=== PATIENT | male | born 1975 | race Hispanic/Latino ===

== ENCOUNTER 2017-03-26 19:15 | Inpatient (IN) | payer SELFPAY ==
[2017-03-26 20:09] LABS: #Basophils 0.1 thou/uL (0.0-0.2); #Eosinphils 0.3 thou/uL (0.0-0.7); #Lymphocytes 3.5 thou/uL (1.20-3.40); #Monocytes 0.8 thou/uL (0.11-0.59); #Neutrophils 6.7 thou/uL (1.40-6.50); %Basophils 0.5 % (0.0-1.0); %Eosinophils 2.2 % (0.0-10.0); %Monocytes 7.5 % (0.0-10.0); Mean Platelet Volume 9.9 fL (7.4-10.4); Red Blood Cell (RBC) Count 4.74 mill/uL (4.70-6.10); White Blood Cell (WBC) Count 11.3 thou/uL (4.8-10.8)
[2017-03-26 20:29] LABS: ALT (SGPT) 58 U/L (8-55); AST (SGOT) 32 U/L (5-34); Alkaline Phosphatase 118 U/L (40-150); Anion Gap 14 mmol/L (10-20); BUN (Urea Nitrogen) 12 mg/dL (8.9-20.6); Bilirubin, Total 0.6 mg/dL (0.2-1.2); Calc. Creatinine Clearance 0 mL/min (70-130); Calcium 9.5 mg/dL (7.8-10.44); Carbon Dioxide 26 mmol/L (22-29); Chloride 95 mmol/L (98-107); Estimated GFR-MDRD 80; Globulin 3.8 g/dL (2.4-3.5); Protein, Total 7.9 g/dL (6.0-8.3)
[2017-03-26 20:43] LABS: Lactic Acid - Sepsis 2.2 mmol/L (0.5-2.2)
[2017-03-26] MEDS ORDERED: Ondansetron HCl/PF 4 MG/2 ML Vial ONE (20:46)
[2017-03-26] MEDS ORDERED: Morphine 2 MG/ML SYRINGE ONE (20:46)
--- NOTE | 2017-03-26 21:12 | RAD ---
RIGHT KNEE FOUR VIEWS: History: Knee pain. FINDINGS: There is no sign of fracture, dislocation, or joint effusion. IMPRESSION: Negative right knee. POS: TEENA
[2017-03-26 21:25] LABS: Anion Gap 10 mmol/L (-14-95); T. Carbon Dioxide 25.7 mmol/L (1.0-85.0); pH (Venous) 7.427 (7.35-7.45); vO2 Saturation-calc 97.8 % (0.0-100.0)
[2017-03-26] MEDS ORDERED: Insulin Regular 300 UNITS/3 ML VIAL ONE (21:36)
[2017-03-26] MEDS ORDERED: cefTRIAXone\\ROCEPHIN 2 GM VIAL ONE (22:03)
[2017-03-26 23:14] VITALS: BMI 37.0
[2017-03-26] MEDS ORDERED: Ondansetron HCl/PF 4 MG/2 ML Vial IVP PRN ×2 (23:15→23:33)
[2017-03-26] MEDS ORDERED: Acetaminophen 325 MG TAB PO PRN (23:15)
[2017-03-26] MEDS ORDERED: Ondansetron ODT 4 MG TAB SL PRN (23:15)
[2017-03-26] MEDS ORDERED: Sodium Chloride 0.9% 1,000 ML IV SCH (23:16)
[2017-03-26] MEDS ORDERED: hydrALAZINE 20 MG/ML VIAL SLOW IVP PRN (23:33)
[2017-03-26] MEDS ORDERED: Ondansetron ODT 4 MG TAB PO PRN (23:33)
[2017-03-26] MEDS ORDERED: cloNIDine 0.1 MG TAB PO PRN (23:33)
[2017-03-26] MEDS ORDERED: HumaLOG 300 UNITS/3 ML VIAL SC PRN (23:33)
[2017-03-26] MEDS ORDERED: Dextrose 5% in Water 1,000 ML IV PRN (23:33)
[2017-03-26] MEDS ORDERED: Acetaminophen 500 MG TAB PO PRN (23:33)
[2017-03-26] MEDS ORDERED: Dextrose 50% Abboject 50 ML SYRINGE SLOW IVP PRN (23:33)
[2017-03-26] MEDS: Ketorolac Tromethamine 30 MG/ML VIAL IVP SCH (23:58)
[2017-03-26] MEDS: Sodium Chloride 0.9% 1,000 ML IV SCH (23:58)
--- NOTE | 2017-03-27 00:09 | HP ---
DATE OF ADMISSION: 03/26/2017 PRIMARY CARE PHYSICIAN: Polo farmer. CHIEF COMPLAINT: Right knee pain. HISTORY OF PRESENT ILLNESS: This is a 41-year-old male who presents to [facility] complaining of 4 to 5-day history of increasing right knee pain, swelling, redness wi th difficulty moving the knee. The patient states he was changing a tire approximately 4 to 5 days prior to this evaluation, kneeling on his right knee when a thorn punctured over his right kneecap. The patient states he had increasing swelling, pain, and redness moving up his right inner thigh in the last 24 to 48 hours. The patient states he clean the area with soap and water; however, did no t notice any foreign body or drainage from the knee. The patient denies any prior similar incidents in the past. The patient did not take any other specific medications and denied documented or subj ective fever. 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 In the emergency room, the patient underwent general evaluation with incr eased redness of the right knee noted undergoing plain radiographic evaluation showing no evidence o f foreign body. Screening metabolic survey was also performed showing evidence of undiagnosed diabe omayra mellitus with a glucose of 614. The patient received intravenous fluids as well as 10 units of Novolin R and Zofran. The patient also received IV vancomycin and Rocephin after suspicion for loca l cellulitis versus septic bursitis. The patient was transferred to the Hospitalist Service for elizabeth luation and admission. PAST MEDICAL HISTORY: Diabetes mellitus type 2, untreated. PAST SURGICAL HISTORY: Reviewed and negative. CURRENT MEDICATIONS: Reviewed and negative. ALLERGIES: No known drug allergies. FAMILY HISTORY: The patient admits to one uncle with diabetes mellitus. SOCIAL HISTORY: The patient has resides in the [facility] area. Works as a tractor [employer]. Positive alcohol use. No tobacco or illicit drug use. REVIEW OF SYSTEMS: The following complete review of systems was negative, unless otherwise mentione d in the HPI or below: Constitutional: Weight loss or gain, ability to conduct usual activities. Skin: Rash, itching. Eyes: Double vision, pain. ENT/Mouth: Nose bleeding, neck stiffness, pain, tenderness. Cardiovascular: Palpitations, dyspnea on exertion, orthopnea. Respiratory: Shortness of breath, wheezing, cough, hemoptysis, fever or night sweats. Gastrointestinal: Poor appetite, abdominal pain, heartburn, nausea, vomiting, constipation, or diar darrell. Genitourinary: Urgency, frequency, dysuria, nocturia. Musculoskeletal: Pain, swelling. Neurologic/Psychiatric: Anxiety, depression. Allergy/Immunologic: Skin rash, bleeding tendency. Otherwise, negative except as stated per HPI. PHYSICAL EXAMINATION: VITAL SIGNS: On admission, blood pressure 155/95, pulse 94, respiratory rate 18, temperature 98.3 d egrees Fahrenheit, O2 saturation 98% on room air. GENERAL APPEARANCE: This is a 41-year-old male, alert and oriented x3, pleasant, in no acu te distress. HEENT: Pupils are equal, round, and reactive to light and accommodation. Extraocular muscles are i ntact. No scleral icterus, no conjunctival injection. Nares patent. OP is clear. Teeth in fair r epair. NECK: Supple, no cervical adenopathy, no thyromegaly, no carotid bruits, no JVD appreciated. Cervi miguelito spine with full active and passive range of motion. CHEST: Lungs are clear to auscultation bilaterally. CARDIOVASCULAR: S1, S2, without noted murmur. ABDOMEN: Obese, soft, nontender, nondistended. Bowel sounds are positive in all four quadrants. T here is no hepatosplenomegaly, no abdominal bruits, no rebound or guarding appreciated. EXTREMITIES: Warm and dry with fair turgor. Positive edema and erythema over the right patella wit h partial fluctuance to palpation. No expressible discharge noted. Limited active range of motion and terminal degrees of flexion. No popliteal space edema or tenderness to palpation. Pulses are p alpable distally at the dorsalis pedis, posterior tibial, and popliteal arteries bilaterally. Capil morales refill less than 2 seconds. NEUROLOGIC: Cranial nerves II-XII are grossly intact. No focal or lateralizing signs appreciated. PERTINENT LABORATORY DATA AND X-RAY FINDINGS: Sodium 131, potassium 4.2, chloride 95, CO2 of 26, BU N 12, creatinine 1.03 with estimated GFR of 80, glucose 614, lactic acid level 2.2, serum osmolality 302, calcium 9.5, total bilirubin 0.6, AST 32, ALT of 58, alkaline phosphatase 118. CRP 5.61. Tot al CK of 79, albumin 4.1. CBC showed a white blood cell count of 11.3, hemoglobin 15.8, hematocrit 47, MCV 99.1, platelet count 205 with normal differential. ESR 14. Beta hydroxybutyrate level 0.40 . Four views of the right knee dated 03/26/2017 showed no evidence of acute process. ASSESSMENT AND PLAN: 1. Right knee cellulitis/questionable septic bursitis. The patient will be admitted to the medical floor. We will continue Rocephin 2 grams IV q.24 hours with additional vancomycin 1 gram IV q.12 h ours. We will consult Orthopedic Surgery Service for evaluation and consideration for incision and d rainage. Repeat CBC in the a.m. Continue pain control with Toradol 30 mg IV q.6 hours. 2. New onset diabetes mellitus type 2, uncontrolled. We will initiate insulin sliding scale with H umalog. Initiate metformin 850 mg p.o. b.i.d. Check A1c level in the a.m. ADA diet. Serial Accu- Cheks before meals and at bedtime. 3. Hyponatremia secondary to hyperglycemia. We will continue normal saline at 125 mL per hour and repeat sodium level in the a.m. 4. Elevated blood pressure. No specific diagnosis of prior hypertension. We will continue serial blood pressure monitoring and treat as clinically indicated. 5. Leukocytosis secondary to #1. Repeat CBC in the a.m. 6. Prophylaxis. Update tetanus prior to discharge. Pepcid 20 mg p.o. b.i.d. Sequential compressi on devices while in bed. 7. Code status is FULL. Surrogate medical decision maker is patient's son.
[2017-03-27] MEDS: HumaLOG 300 UNITS/3 ML VIAL SC PRN ×3 (05:16→17:56)
[2017-03-27] MEDS: Ketorolac Tromethamine 30 MG/ML VIAL IVP SCH ×4 (05:17→23:46)
[2017-03-27 05:27] LABS: Hemoglobin A1c 11.9 % (4.0-6.0)
[2017-03-27 05:39] LABS: Anion Gap 8 mmol/L (10-20); BUN (Urea Nitrogen) 9 mg/dL (8.9-20.6); Calc. Creatinine Clearance 185 mL/min (70-130); Calcium 8.4 mg/dL (7.8-10.44); Carbon Dioxide 27 mmol/L (22-29); Chloride 105 mmol/L (98-107); Estimated GFR-MDRD Greater than 90
[2017-03-27 06:00] LABS: Band 3 % (5-11); Hematocrit 40.8 % (42.0-52.0); Neutrophil 44 % (42-75); White Blood Cell (WBC) Count 7.2 thou/uL (4.8-10.8)
[2017-03-27] MEDS: metFORMIN 850 MG TAB PO SCH ×2 (08:07→17:56)
[2017-03-27] MEDS: Famotidine 20 MG TAB PO SCH ×2 (08:07→21:36)
[2017-03-27] MEDS: Sodium Chloride 0.9% 1,000 ML IV SCH (08:10)
[2017-03-27] MEDS ORDERED: FLU VACC QS2017-18 36 mo. & older 0.5 ML SYRINGE IM ONE (09:00)
[2017-03-27] MEDS ORDERED: Vancomycin HCl 1 GM in Premix Bag 1 BAG IVPB SCH (09:00)
[2017-03-27] MEDS: Vancomycin HCl 1.5 GM in Sodium Chloride 0.9% 250 ML 250 ML IVPB SCH ×2 (10:07→21:45)
--- NOTE | 2017-03-27 13:44 | PDOC.PN ---
- Subjective Encounter Start Date: 03/27/17 Encounter Start Time: 12:00 Subjective: right knee is feeling better - Objective Resuscitation Status: Resuscitation Status FULL:Full Resuscitation MAR Reviewed: Yes Vital Signs & Weight: Vital Signs (12 hours) Temp Pulse Resp BP BP Pulse Ox 03/27/17 12:00 97.6 F 75 18 123/77 95 03/27/17 08:00 97.9 F 74 18 111/73 98 03/27/17 04:00 97.9 F 77 16 119/80 98 Weight Weight 223 lb I&O: 03/26/17 03/27/17 03/28/17 06:59 06:59 06:59 Intake Total 1275 240 Balance 1275 240 Result Diagrams: 03/27/17 05:09 03/27/17 05:09 Additional Labs: Accuchecks 03/27/17 03/27/17 03/26/17 11:57 04:57 23:17 POC Glucose 214 H 284 H 277 H Phys Exam - Physical Examination HEENT: PERRLA, moist MMs Neck: no JVD, supple Respiratory: no wheezing, no rales Cardiovascular: RRR, no significant murmur Gastrointestinal: soft, no distention, positive bowel sounds Musculoskeletal: pulses present right knee has edema, erythema and crepitus Neurological: non-focal, moves all 4 limbs Psychiatric: A&O x 3 Dx/Plan (1) Cellulitis of right knee Code(s): L03.115 - CELLULITIS OF RIGHT LOWER LIMB Status: Acute (2) DM type 2 (diabetes mellitus, type 2) Status: Acute Qualifiers: Diabetes mellitus complication status: with hyperglycemia Diabetes mellitus custodial insulin use: without terminal block assembler use Qualified Code(s): E11.65 - Type 2 diabetes mellitus with hyperglycemia Comment: new onset (3) Obesity (BMI 30-39.9) Code(s): E66.9 - OBESITY, UNSPECIFIED Status: Chronic - Plan is on vanc and ceftriaxone -: diabetic education, new onset dm -: is on metformin 850mg bid with coverage -: will revisit patient in am to see response for antibiotics * . Review of Systems - Medications/Allergies Allergies/Adverse Reactions: Allergies Allergy/AdvReac Type Severity Reaction Status Date / Time No Known Drug Allergies Allergy Verified 03/27/17 00:39 Medications: Current Medications Acetaminophen (Tylenol) 1,000 mg PO Q6H PRN PRN Reason: Headache/Fever or Mild Pain Hydrocodone Bitart/Acetaminophen ([place] 5/325) 1 tab PO Q4H PRN PRN Reason: Moderate Pain (4-6) Clonidine HCl (Catapres) 0.1 mg PO Q4H PRN PRN Reason: Systolic BP > 180 Dextrose/Water (Dextrose 50%) 25 gm SLOW IVP PRN PRN PRN Reason: Hypoglycemia Famotidine (Pepcid) 20 mg PO BID [facility] Last Admin: 03/27/17 08:07 Dose: 20 mg Glucagon (Glucagon) 1 mg IM PRN PRN PRN Reason: Hypoglycemia Hydralazine HCl (Apresoline) 10 mg SLOW IVP Q4H PRN PRN Reason: Systolic BP > 180 Dextrose/Water (D5w) 1,000 mls @ 0 mls/hr IV .Q0M PRN; As Directed PRN Reason: Hypoglycemia Sodium Chloride (Normal Saline 0.9%) 1,000 mls @ 125 mls/hr IV .Q8H [facility] Last Admin: 03/27/17 08:10 Dose: 1,000 mls Vancomycin HCl 1.5 gm/ Sodium (Chloride) 250 mls @ 166.67 mls/hr IVPB 1000, 2200 [facility] Last Admin: 03/27/17 10:07 Dose: 250 mls Ceftriaxone Sodium 2 gm/Miscellaneous Medication 1 each/ Sodium Chloride 100 mls @ 200 mls/hr IVPB Q24HR [facility] Insulin Human Lispro (Humalog) 0 units SC .MODERATE SLIDING SC PRN PRN Reason: Moderate Correctional Scale Last Admin: 03/27/17 12:04 Dose: 4 unit Insulin Human Lispro (Humalog) 0 units SC .BEDTIME SLIDING SC PRN PRN Reason: Bedtime Correctional Scale Ketorolac Tromethamine (Toradol) 30 mg IVP Q6HR [facility] Stop: 03/31/17 23:59 Last Admin: 03/27/17 12:03 Dose: 30 mg Metformin HCl (Glucophage) 850 mg PO BID-[facility] Last Admin: 03/27/17 08:07 Dose: 850 mg Ondansetron HCl (Zofran Odt) 4 mg PO Q6H PRN PRN Reason: Nausea/Vomiting Ondansetron HCl (Zofran) 4 mg IVP Q6H PRN PRN Reason: Nausea/Vomiting
--- NOTE | 2017-03-27 18:48 | CON ---
DATE OF CONSULTATION: 03/27/2017 ORTHOPEDIC CONSULTATION REQUESTING PHYSICIAN: Alondra Boothe M.D. CONSULTING PHYSICIAN: Masoud Lo M.D. REASON FOR CONSULTATION: Right knee pain, swelling, and redness consistent with suprapatellar bursi tis and septic bursitis. BRIEF CLINICAL HISTORY: Josr is a 41-year-old male who was admitted to the emergency ro om by the medicine team after he presented with increasing pain in the right knee for 4 to 5 days. He had no evaluation and no treatment, but apparently a thorn punctured his skin over his right knee cap. Pain has been getting worse, but he has had no drainage and the erythema has been becoming mor e noticeable. Apparently, he presented with glucose of 614. He has been started on IV vancomycin a nd Rocephin. Our service was consulted for evaluation for septic bursitis and surgical candidacy fo r possible drainage. PAST MEDICAL HISTORY: New diagnosis, diabetes type 2, untreated. PAST SURGICAL HISTORY: Negative. MEDICATIONS: None. ALLERGIES: No known drug allergies. Denies any contact allergies. 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 Consumes ethanol socially. No to bacco or illicit drug abuse. PHYSICAL EXAMINATION: Visual inspection of the right lower extremity demonstrates him to have swell ing in the supralateral aspect of the right knee. Patellar ballottement is negative. There is no f luctuance, but it is quite indurated, tender, warm, and erythematous, but the joint does not appear to be involved. He has active range of motion of the knee and passive is non-provocative. No evide nce of trauma was noted, but he does have some induration of about 3 to 4 cm in length in the transv erse plane. No fluctuance is noted. No purulence is expressed. Erythema surrounds this and is ten kain and warm and local and blanches with pressure. IMPRESSION: Right knee extracapsular suprapatellar cellulitis. PLAN: We will observe for the next 24 hours. We will let him receive IV antibiotics to see if the swelling and induration goes down, but currently I cannot detect a fluctuant abscess appropriate for drainage. The knee capsule does not appear to be involved, but certainly proceed with IV antibioti c treatment. Reevaluate tomorrow morning and I will keep him n.p.o. just in case.
[2017-03-27] MEDS: cefTRIAXone\\ROCEPHIN 2 GM, Admixture Fee 1 EACH in Sodium Chloride 0.9% 100 ML IVPB SCH (21:37)
[2017-03-28] MEDS: Ketorolac Tromethamine 30 MG/ML VIAL IVP SCH ×3 (05:15→17:52)
[2017-03-28] MEDS: HYDROcodone/Acetaminophen 5/325 mg Tablet PO PRN ×2 (09:07→16:44)
[2017-03-28] MEDS: Famotidine 20 MG TAB PO SCH ×2 (09:08→21:04)
[2017-03-28] MEDS: metFORMIN 850 MG TAB PO SCH ×2 (09:08→17:01)
[2017-03-28] MEDS: Vancomycin HCl 1.5 GM in Sodium Chloride 0.9% 250 ML 250 ML IVPB SCH ×2 (09:08→21:41)
--- NOTE | 2017-03-28 11:01 | PDOC.PN ---
- Subjective Encounter Start Date: 03/28/17 Encounter Start Time: 11:00 Subjective: feels better, right knee pain and swelling is better - Objective Resuscitation Status: Resuscitation Status FULL:Full Resuscitation MAR Reviewed: Yes Vital Signs & Weight: Vital Signs (12 hours) Temp Pulse Resp BP Pulse Ox 03/28/17 07:54 98.1 F 72 16 129/86 97 Weight Weight 223 lb I&O: 03/27/17 03/28/17 03/29/17 06:59 06:59 06:59 Intake Total 1275 480 Balance 1275 480 Result Diagrams: 03/27/17 05:09 03/27/17 05:09 Additional Labs: Accuchecks 03/28/17 03/27/17 03/27/17 04:13 20:23 16:12 POC Glucose 246 H 267 H 280 H 03/27/17 11:57 POC Glucose 214 H Phys Exam - Physical Examination HEENT: PERRLA, moist MMs Neck: no JVD, supple Respiratory: no wheezing, no rales Cardiovascular: RRR, no significant murmur Gastrointestinal: soft, non-tender, positive bowel sounds Musculoskeletal: pulses present right knee erythema and induration is better Neurological: non-focal, moves all 4 limbs Psychiatric: A&O x 3 Dx/Plan (1) Cellulitis of right knee Code(s): L03.115 - CELLULITIS OF RIGHT LOWER LIMB Status: Acute (2) DM type 2 (diabetes mellitus, type 2) Status: Acute Qualifiers: Diabetes mellitus complication status: with hyperglycemia Diabetes mellitus terminal manager insulin use: without long-term use Qualified Code(s): E11.65 - Type 2 diabetes mellitus with hyperglycemia Comment: new onset (3) Obesity (BMI 30-39.9) Code(s): E66.9 - OBESITY, UNSPECIFIED Status: Chronic - Plan is on vanc and ceftriaxone -: add glipizide -: will switch metformin to tid 500mg in am -: ortho team is following * . Review of Systems - Medications/Allergies Allergies/Adverse Reactions: Allergies Allergy/AdvReac Type Severity Reaction Status Date / Time No Known Drug Allergies Allergy Verified 03/27/17 00:39 Medications: Current Medications Acetaminophen (Tylenol) 1,000 mg PO Q6H PRN PRN Reason: Headache/Fever or Mild Pain Hydrocodone Bitart/Acetaminophen ([place] 5/325) 1 tab PO Q4H PRN PRN Reason: Moderate Pain (4-6) Last Admin: 03/28/17 09:07 Dose: 1 tab Clonidine HCl (Catapres) 0.1 mg PO Q4H PRN PRN Reason: Systolic BP > 180 Dextrose/Water (Dextrose 50%) 25 gm SLOW IVP PRN PRN PRN Reason: Hypoglycemia Famotidine (Pepcid) 20 mg PO BID [facility] Last Admin: 03/28/17 09:08 Dose: 20 mg Glipizide (Glucotrol) 5 mg PO [facility] Stop: 03/28/17 10:59 Glipizide (Glucotrol) 5 mg PO DAILY-[facility] Glucagon (Glucagon) 1 mg IM PRN PRN PRN Reason: Hypoglycemia Hydralazine HCl (Apresoline) 10 mg SLOW IVP Q4H PRN PRN Reason: Systolic BP > 180 Dextrose/Water (D5w) 1,000 mls @ 0 mls/hr IV .Q0M PRN; As Directed PRN Reason: Hypoglycemia Vancomycin HCl 1.5 gm/ Sodium (Chloride) 250 mls @ 166.67 mls/hr IVPB 1000, 2200 [facility] Last Admin: 03/28/17 09:08 Dose: 250 mls Ceftriaxone Sodium 2 gm/Miscellaneous Medication 1 each/ Sodium Chloride 100 mls @ 200 mls/hr IVPB Q24HR [facility] Last Admin: 03/27/17 21:37 Dose: 100 mls Insulin Human Lispro (Humalog) 0 units SC .MODERATE SLIDING SC PRN PRN Reason: Moderate Correctional Scale Last Admin: 03/27/17 17:56 Dose: 6 unit Insulin Human Lispro (Humalog) 0 units SC .BEDTIME SLIDING SC PRN PRN Reason: Bedtime Correctional Scale Last Admin: 03/27/17 21:36 Dose: 3 unit Ketorolac Tromethamine (Toradol) 30 mg IVP Q6HR [facility] Stop: 03/31/17 23:59 Last Admin: 03/28/17 05:15 Dose: 30 mg Metformin HCl (Glucophage) 850 mg PO BID-[facility] Last Admin: 03/28/17 09:08 Dose: 850 mg Ondansetron HCl (Zofran Odt) 4 mg PO Q6H PRN PRN Reason: Nausea/Vomiting Ondansetron HCl (Zofran) 4 mg IVP Q6H PRN PRN Reason: Nausea/Vomiting
[2017-03-28] MEDS ORDERED: glipiZIDE 5 MG TAB PO SCH (11:15)
[2017-03-28] MEDS: HumaLOG 300 UNITS/3 ML VIAL SC PRN ×2 (12:19→17:05)
--- NOTE | 2017-03-28 12:50 | PRG ---
DATE OF SERVICE: 03/28/2017 SUBJECTIVE: Von's knee feels better with the antibiotic treatment. He is receiving Rocephin IV; this has had a significant impact as well as the vancomycin. OBJECTIVE: VITAL SIGNS: Temperature 98.1, pulse 72, respiratory rate 16, O2 saturation 97%, and blood pressure 129/86. GENERAL: He is alert and oriented to person, place, time, and situation, and appropriate. He has v nikolay little medical complaints. He has a full range of motion of the knee. His erythema is receding , but he still has a little bit of firmness and induration of the skin, but again no significant flu ctuance or abscess is palpable. No drainage. IMPRESSION: Right knee suprapatellar cellulitis with suspected small abscess, but cannot clinically localize it. PLAN: We are going to let him eat today and make him n.p.o. after midnight tomorrow, but most likel y an I\T\D at the bedside, tomorrow should we be able to localize an abscess.
[2017-03-28] MEDS: cefTRIAXone\\ROCEPHIN 2 GM, Admixture Fee 1 EACH in Sodium Chloride 0.9% 100 ML IVPB SCH (21:04)
[2017-03-28 21:20] LABS: Vancomycin, Trough 5.7 ug/mL
[2017-03-29] MEDS: Ketorolac Tromethamine 30 MG/ML VIAL IVP SCH ×4 (00:16→17:01)
[2017-03-29] MEDS: Vancomycin HCl 1.5 GM in Sodium Chloride 0.9% 250 ML 250 ML IVPB SCH ×3 (05:18→22:15)
[2017-03-29 05:27] LABS: #Basophils 0.1 thou/uL (0.0-0.2); #Eosinphils 0.3 thou/uL (0.0-0.7); #Lymphocytes 2.1 thou/uL (1.20-3.40); #Monocytes 0.7 thou/uL (0.11-0.59); #Neutrophils 3.6 thou/uL (1.40-6.50); %Basophils 0.9 % (0.0-1.0); %Eosinophils 4.7 % (0.0-10.0); %Lymphocytes 31.4 % (21.0-51.0); %Monocytes 10.5 % (0.0-10.0); Hematocrit 42.8 % (42.0-52.0); Mean Platelet Volume 9.3 fL (7.4-10.4); Red Blood Cell (RBC) Count 4.43 mill/uL (4.70-6.10); White Blood Cell (WBC) Count 6.8 thou/uL (4.8-10.8)
[2017-03-29 06:05] LABS: Anion Gap 12 mmol/L (10-20); BUN (Urea Nitrogen) 8 mg/dL (8.9-20.6); Calc. Creatinine Clearance 196 mL/min (70-130); Calcium 8.5 mg/dL (7.8-10.44); Carbon Dioxide 23 mmol/L (22-29); Chloride 104 mmol/L (98-107); Estimated GFR-MDRD Greater than 90
[2017-03-29] MEDS: glipiZIDE 5 MG TAB PO SCH (07:49)
[2017-03-29] MEDS: metFORMIN 850 MG TAB PO SCH ×2 (07:49→17:01)
[2017-03-29] MEDS ORDERED: Fentanyl 100 MCG/2 ML VIAL SLOW IVP SCH (08:00)
[2017-03-29] MEDS ORDERED: Lidocaine 1% (PF) 30 ML VIAL SC SCH (08:00)
[2017-03-29] MEDS: Famotidine 20 MG TAB PO SCH ×2 (11:32→21:16)
--- NOTE | 2017-03-29 14:50 | PDOC.PN ---
- Subjective Encounter Start Date: 03/29/17 Encounter Start Time: 09:45 -: old records requested/rev Patient seen and examined. No new complaints. No overnight events - Objective Resuscitation Status: Resuscitation Status FULL:Full Resuscitation MAR Reviewed: Yes Vital Signs & Weight: Vital Signs (12 hours) Temp Pulse Resp BP Pulse Ox 03/29/17 08:00 98.1 F 70 16 122/71 97 Weight Weight 223 lb I&O: 03/28/17 03/29/17 03/30/17 06:59 06:59 06:59 Intake Total 480 1250 480 Balance 480 1250 480 Result Diagrams: 03/29/17 05:07 03/29/17 05:07 Additional Labs: Accuchecks 03/29/17 03/29/17 03/28/17 10:52 05:17 20:13 POC Glucose 231 H 230 H 179 H 03/28/17 03/28/17 16:57 12:07 POC Glucose 176 H 230 H Phys Exam - Physical Examination Constitutional: NAD HEENT: PERRLA, moist MMs, sclera anicteric Neck: no JVD, supple Respiratory: no wheezing, no rales, no rhonchi Cardiovascular: RRR, no significant murmur, no rub Gastrointestinal: soft, non-tender, no distention, positive bowel sounds Musculoskeletal: no edema knee swelling on right Neurological: non-focal, normal sensation, moves all 4 limbs Psychiatric: normal affect, A&O x 3 Skin: no rash, normal turgor Dx/Plan (1) Cellulitis of right knee Code(s): L03.115 - CELLULITIS OF RIGHT LOWER LIMB Status: Acute (2) DM type 2 (diabetes mellitus, type 2) Status: Acute Qualifiers: Diabetes mellitus complication status: with hyperglycemia Diabetes mellitus rat exterminator insulin use: without rat exterminator use Qualified Code(s): E11.65 - Type 2 diabetes mellitus with hyperglycemia Comment: new onset (3) Obesity (BMI 30-39.9) Code(s): E66.9 - OBESITY, UNSPECIFIED Status: Chronic (4) Prepatellar bursitis Code(s): M70.40 - PREPATELLAR BURSITIS, UNSPECIFIED KNEE Status: Acute Qualifiers: Laterality: right Qualified Code(s): M70.41 - Prepatellar bursitis, right knee - Plan cont current plan of care, plan discussed w/ family, continue antibiotics * today pt will need I & D * continue IV vancomycin and rocephin * pain control * medication reviewed as below * symptomatic treatment. Review of Systems - Review of Systems ENT: negative: Ear Pain, Ear Discharge, Nose Pain, Nose Discharge, Nose Congestion, Mouth Pain, Mouth Swelling, Throat Pain, Throat Swelling, Other Respiratory: negative: Cough, Dry, Shortness of Breath, Hemoptysis, SOB with Excertion, Pleuritic Pain, Sputum, Wheezing Cardiovascular: negative: Chest Pain, Palpitations, Orthopnea, Paroxysmal Noc. Dyspnea, Edema, Light Headedness, Other Gastrointestinal: negative: Nausea, Vomiting, Abdominal Pain, Diarrhea, Constipation, Melena, Hematochezia, Other Genitourinary: negative: Dysuria, Frequency, Incontinence, Hematuria, Retention , Other Musculoskeletal: negative: Neck Pain, Shoulder Pain, Arm Pain, Back Pain, Hand Pain, Leg Pain, Foot Pain, Other Skin: negative: Rash, Lesions, Jeferson, Bruising, Other - Medications/Allergies Allergies/Adverse Reactions: Allergies Allergy/AdvReac Type Severity Reaction Status Date / Time No Known Drug Allergies Allergy Verified 03/27/17 00:39 Medications: Current Medications Acetaminophen (Tylenol) 1,000 mg PO Q6H PRN PRN Reason: Headache/Fever or Mild Pain Hydrocodone Bitart/Acetaminophen ([place] 5/325) 1 tab PO Q4H PRN PRN Reason: Moderate Pain (4-6) Last Admin: 03/28/17 16:44 Dose: 1 tab Clonidine HCl (Catapres) 0.1 mg PO Q4H PRN PRN Reason: Systolic BP > 180 Dextrose/Water (Dextrose 50%) 25 gm SLOW IVP PRN PRN PRN Reason: Hypoglycemia Famotidine (Pepcid) 20 mg PO BID [facility] Last Admin: 03/29/17 11:32 Dose: Not Given Glipizide (Glucotrol) 5 mg PO DAILY-[facility] Last Admin: 03/29/17 07:49 Dose: 5 mg Glucagon (Glucagon) 1 mg IM PRN PRN PRN Reason: Hypoglycemia Hydralazine HCl (Apresoline) 10 mg SLOW IVP Q4H PRN PRN Reason: Systolic BP > 180 Dextrose/Water (D5w) 1,000 mls @ 0 mls/hr IV .Q0M PRN; As Directed PRN Reason: Hypoglycemia Ceftriaxone Sodium 2 gm/Miscellaneous Medication 1 each/ Sodium Chloride 100 mls @ 200 mls/hr IVPB Q24HR [facility] Last Admin: 03/28/17 21:04 Dose: 100 mls Vancomycin HCl 1.5 gm/ Sodium (Chloride) 250 mls @ 166.67 mls/hr IVPB Q8HR [facility] Last Admin: 03/29/17 14:12 Dose: 250 mls Insulin Human Lispro (Humalog) 0 units SC .MODERATE SLIDING SC PRN PRN Reason: Moderate Correctional Scale Last Admin: 03/28/17 17:05 Dose: 2 unit Insulin Human Lispro (Humalog) 0 units SC .BEDTIME SLIDING SC PRN PRN Reason: Bedtime Correctional Scale Last Admin: 03/27/17 21:36 Dose: 3 unit Ketorolac Tromethamine (Toradol) 30 mg IVP Q6HR [facility] Stop: 03/31/17 23:59 Last Admin: 03/29/17 11:30 Dose: 30 mg Metformin HCl (Glucophage) 850 mg PO BID-[facility] Last Admin: 03/29/17 07:49 Dose: 850 mg Ondansetron HCl (Zofran Odt) 4 mg PO Q6H PRN PRN Reason: Nausea/Vomiting Ondansetron HCl (Zofran) 4 mg IVP Q6H PRN PRN Reason: Nausea/Vomiting Sodium Chloride (Flush - Normal Saline) 10 ml IVF PRN PRN PRN Reason: Saline Flush
[2017-03-29] MEDS: HumaLOG 300 UNITS/3 ML VIAL SC PRN (17:02)
--- NOTE | 2017-03-29 17:42 | OP ---
DATE OF PROCEDURE: 03/29/2017 PREPROCEDURE DIAGNOSIS: Right knee cellulitis secondary to suprapatellar abscess. POSTPROCEDURE DIAGNOSIS: Right knee cellulitis secondary to suprapatellar abscess. OPERATIVE PROCEDURE: Incision, drainage, washout, exploration, and primary packing of right knee fitzgerald prapatellar septic abscess. SURGEON: Olvin Shepherd PA-C. ANESTHESIA: 100 mcg fentanyl IV augmented with local infiltration of Xylocaine 1%. FINDINGS: A 2 x 4 cm abscess in the subcutaneous and subfascial layer, but extracapsular in nature, depth of about 2 cm. Purulent drainage consistent grossly with Staph aureus. DRAINS: None. SPECIMENS: Culturette for aerobic and anaerobic was obtained. COMPLICATIONS: None. COUNTS: Correct. INDICATIONS FOR SURGERY: Von is a 41-year-old male, who was admitted, 3 days ago, for ri ght knee cellulitis. He had vaguely palpable abscess, but it was felt that initial treatment with I V antibiotics would make significant progress as it has. Therefore, we elected to proceed with a be dside incision, drainage, exploration, and washout due to the nature and location of this particular abscess. His knee joint has not been affected clinically nor has he had any constitutional symptom s. Therefore, the patient has elected to proceed with superficial bedside incision, drainage, explo ration, washout, and primary packing. PROCEDURE IN DETAIL: After informed consent was obtained, the patient was positioned appropriately. He did receive preprocedure diagnosis. The right lower extremity was then prepped and draped in t he usual sterile fashion. A 1% of skin wheal anesthesia was used to anesthetize the local incision site with about 5 mL of lidocaine. He also received 100 mcg of fentanyl preoperatively. After this was completed, a transverse incision was made then over the length and breadth of the abscess follo wing the curvilinear shape of it. We excised down into subcutaneous layer, which was about 1 cm and then encountered a purulent pocket of what appeared to be staph abscess. This was then further exp lored with blunt dissection and the cavity measured about 2 x 4 cm and 1 cm in depth. The cavity wa s then explored with digital probing and culturette was obtained. We then irrigated the cavity, com pleted with normal saline, and with Kittner probing. Once this was completed, we then packed with q uarter-inch iodoform gauze making sure there are no loculations and good tight compressed fit circum ferentially. After fully packing the depth of the cavity, we then irrigated again with Xylocaine. Sterile dressing was applied. The procedure was terminated without any complications. The patient tolerated really well. Gram stain culture and sensitivity will be sent. We will see the patient enid salinas tomorrow.
[2017-03-29] MEDS: cefTRIAXone\\ROCEPHIN 2 GM, Admixture Fee 1 EACH in Sodium Chloride 0.9% 100 ML IVPB SCH (21:16)
[2017-03-29] MEDS: HYDROcodone/Acetaminophen 5/325 mg Tablet PO PRN (21:19)
[2017-03-29 21:25] LABS: Vancomycin, Trough 12.3 ug/mL
[2017-03-30] MEDS: Ketorolac Tromethamine 30 MG/ML VIAL IVP SCH ×5 (00:32→22:38)
[2017-03-30] MEDS: HYDROcodone/Acetaminophen 5/325 mg Tablet PO PRN ×3 (03:55→20:34)
[2017-03-30] MEDS: Vancomycin HCl 1.5 GM in Sodium Chloride 0.9% 250 ML 250 ML IVPB SCH ×2 (05:14→14:20)
[2017-03-30] MEDS: glipiZIDE 5 MG TAB PO SCH (07:55)
[2017-03-30] MEDS: Famotidine 20 MG TAB PO SCH ×2 (07:55→20:35)
[2017-03-30] MEDS: metFORMIN 850 MG TAB PO SCH ×2 (10:18→17:45)
--- NOTE | 2017-03-30 12:17 | PDOC.PN ---
- Subjective Encounter Start Date: 03/30/17 Encounter Start Time: 10:30 Patient seen and examined. No new complaints. No overnight events - Objective Resuscitation Status: Resuscitation Status FULL:Full Resuscitation MAR Reviewed: Yes Vital Signs & Weight: Vital Signs (12 hours) Temp Pulse Resp BP Pulse Ox 03/30/17 08:00 97.7 F 82 22 H 96 03/30/17 07:42 97.7 F 82 22 H 136/82 96 Weight Weight 223 lb I&O: 03/29/17 03/30/17 03/31/17 06:59 06:59 06:59 Intake Total 8741 048 5559 Balance 2083 605 8352 Result Diagrams: 03/29/17 05:07 03/29/17 05:07 Additional Labs: Accuchecks 03/30/17 03/29/17 03/29/17 04:40 20:57 16:42 POC Glucose 153 H 115 H 420 H Phys Exam - Physical Examination Constitutional: NAD HEENT: PERRLA, moist MMs, sclera anicteric Neck: no JVD, supple Respiratory: no wheezing, no rales, no rhonchi Cardiovascular: RRR, no significant murmur, no rub Gastrointestinal: soft, non-tender, no distention, positive bowel sounds Musculoskeletal: no edema, pulses present Neurological: non-focal, normal sensation, moves all 4 limbs Psychiatric: normal affect, A&O x 3 Skin: no rash, normal turgor Dx/Plan (1) Cellulitis of right knee Code(s): L03.115 - CELLULITIS OF RIGHT LOWER LIMB Status: Acute (2) DM type 2 (diabetes mellitus, type 2) Status: Acute Qualifiers: Diabetes mellitus complication status: with hyperglycemia Diabetes mellitus buttermaker continuous churn insulin use: without buttermaker continuous churn use Qualified Code(s): E11.65 - Type 2 diabetes mellitus with hyperglycemia Comment: new onset (3) Obesity (BMI 30-39.9) Code(s): E66.9 - OBESITY, UNSPECIFIED Status: Chronic (4) Prepatellar bursitis Code(s): M70.40 - PREPATELLAR BURSITIS, UNSPECIFIED KNEE Status: Acute Qualifiers: Laterality: right Qualified Code(s): M70.41 - Prepatellar bursitis, right knee - Plan cont current plan of care, plan discussed w/ family, continue antibiotics * continue IV vancomycin and rocephin * pain controlled * wound care * follow up on culture * ortho following * medication reviewed as below * symptomatic treatment. Review of Systems - Review of Systems Constitutional: negative: Fever, Chills, Sweats, Weakness, Malaise, Other ENT: negative: Ear Pain, Ear Discharge, Nose Pain, Nose Discharge, Nose Congestion, Mouth Pain, Mouth Swelling, Throat Pain, Throat Swelling, Other Respiratory: negative: Cough, Dry, Shortness of Breath, Hemoptysis, SOB with Excertion, Pleuritic Pain, Sputum, Wheezing Cardiovascular: negative: Chest Pain, Palpitations, Orthopnea, Paroxysmal Noc. Dyspnea, Edema, Light Headedness, Other Gastrointestinal: negative: Nausea, Vomiting, Abdominal Pain, Diarrhea, Constipation, Melena, Hematochezia, Other Genitourinary: negative: Dysuria, Frequency, Incontinence, Hematuria, Retention , Other Musculoskeletal: negative: Neck Pain, Shoulder Pain, Arm Pain, Back Pain, Hand Pain, Leg Pain, Foot Pain, Other Skin: negative: Rash, Lesions, Jeferson, Bruising, Other - Medications/Allergies Allergies/Adverse Reactions: Allergies Allergy/AdvReac Type Severity Reaction Status Date / Time No Known Drug Allergies Allergy Verified 03/27/17 00:39 Medications: Current Medications Acetaminophen (Tylenol) 1,000 mg PO Q6H PRN PRN Reason: Headache/Fever or Mild Pain Hydrocodone Bitart/Acetaminophen ([place] 5/325) 1 tab PO Q4H PRN PRN Reason: Moderate Pain (4-6) Last Admin: 03/30/17 03:55 Dose: 1 tab Clonidine HCl (Catapres) 0.1 mg PO Q4H PRN PRN Reason: Systolic BP > 180 Dextrose/Water (Dextrose 50%) 25 gm SLOW IVP PRN PRN PRN Reason: Hypoglycemia Famotidine (Pepcid) 20 mg PO BID [facility] Last Admin: 03/30/17 07:55 Dose: 20 mg Glipizide (Glucotrol) 5 mg PO DAILY-[facility] Last Admin: 03/30/17 07:55 Dose: 5 mg Glucagon (Glucagon) 1 mg IM PRN PRN PRN Reason: Hypoglycemia Hydralazine HCl (Apresoline) 10 mg SLOW IVP Q4H PRN PRN Reason: Systolic BP > 180 Dextrose/Water (D5w) 1,000 mls @ 0 mls/hr IV .Q0M PRN; As Directed PRN Reason: Hypoglycemia Ceftriaxone Sodium 2 gm/Miscellaneous Medication 1 each/ Sodium Chloride 100 mls @ 200 mls/hr IVPB Q24HR [facility] Last Admin: 03/29/17 21:16 Dose: 100 mls Vancomycin HCl 1.5 gm/ Sodium (Chloride) 250 mls @ 166.67 mls/hr IVPB Q8HR [facility] Last Admin: 03/30/17 05:14 Dose: 250 mls Insulin Human Lispro (Humalog) 0 units SC .MODERATE SLIDING SC PRN PRN Reason: Moderate Correctional Scale Last Admin: 03/29/17 17:02 Dose: 10 unit Insulin Human Lispro (Humalog) 0 units SC .BEDTIME SLIDING SC PRN PRN Reason: Bedtime Correctional Scale Last Admin: 03/27/17 21:36 Dose: 3 unit Ketorolac Tromethamine (Toradol) 30 mg IVP Q6HR [facility] Stop: 03/31/17 23:59 Last Admin: 03/30/17 11:59 Dose: 30 mg Metformin HCl (Glucophage) 850 mg PO BID-[facility] Last Admin: 03/30/17 10:18 Dose: 850 mg Ondansetron HCl (Zofran Odt) 4 mg PO Q6H PRN PRN Reason: Nausea/Vomiting Ondansetron HCl (Zofran) 4 mg IVP Q6H PRN PRN Reason: Nausea/Vomiting Sodium Chloride (Flush - Normal Saline) 10 ml IVF PRN PRN PRN Reason: Saline Flush
[2017-03-30] MEDS: cefTRIAXone\\ROCEPHIN 2 GM, Admixture Fee 1 EACH in Sodium Chloride 0.9% 100 ML IVPB SCH (21:06)
[2017-03-30 21:21] LABS: Vancomycin, Trough 11.8 ug/mL
[2017-03-30] MEDS: Vancomycin HCl 1.75 GM in Sodium Chloride 0.9% 500 ML IVPB SCH (22:37)
[2017-03-31] MEDS: Vancomycin HCl 1.75 GM in Sodium Chloride 0.9% 500 ML IVPB SCH (05:19)
[2017-03-31] MEDS: Ketorolac Tromethamine 30 MG/ML VIAL IVP SCH ×2 (05:22→12:12)
[2017-03-31] MEDS: glipiZIDE 5 MG TAB PO SCH (08:28)
[2017-03-31] MEDS: Famotidine 20 MG TAB PO SCH (08:28)
[2017-03-31] MEDS: metFORMIN 850 MG TAB PO SCH (08:28)
[2017-03-31 11:40] VITALS: BP 113/83; TEMP 97.6
--- NOTE | 2017-03-31 12:18 | DIS ---
DATE OF ADMISSION: 03/26/2017 DATE OF DISCHARGE: 03/31/2017 PRIMARY CARE PHYSICIAN: [facility] call admission. DISCHARGE DISPOSITION: Home. PRIMARY DISCHARGE DIAGNOSIS: Right knee cellulitis with right knee prepatellar bursitis, status post incision and drainage. SECONDARY DISCHARGE DIAGNOSES: Diabetes type 2, obesity with body mass index of 37. PRIMARY PROCEDURE/OPERATION: Incision and debridement of prepatellar bursitis by Dr. Lo. RADIOLOGICAL INVESTIGATION: Knee x-ray. SIGNIFICANT LABORATORY DATA: WBC 6.8, hemoglobin 14.3, platelet 200. Sodium 135, potassium 4.0, BUN 8, creatinine 0.71, calcium 8.5, hemoglobin A1c 11.9. Blood culture negative. Culture from the abscess grew Staph aureus. DISCHARGE MEDICATIONS: Tylenol #3 one or two tablets p.o. q.6 hourly p.r.n. for pain, Keflex 500 mg p.o. t.i.d., Florastor 250 mg p.o. daily. The patient will continue antibiotic therapy and probiotic therapy for 15 days. Glucotrol 5 mg p.o. daily, metformin 850 mg p.o. b.i.d. CONTRAINDICATIONS: None. CODE STATUS: FULL CODE. INPATIENT INNOVATION ANALYST: Dr. Ledezma was consulted knee prepatellar bursitis. TEST RESULTS PENDING ON DISCHARGE: None. ALLERGIES: No known drug allergy. DISCHARGE PLAN: Post hospital, patient is advised to follow up with Dr. Lo in 7 days. The patient is advised to follow with primary care physician in 1 week. HOSPITAL COURSE: A 41-year-old male with the above mentioned medical problem who was admitted by Dr. Lafleur. Please see his H\T\P for further details. The patient was having right knee swelling, erythema, and tenderness. Patient was admitted for right knee cellulitis. We suspect prepatellar bursitis. Initially , patient was given antibiotic trial, but he did not have any significant improvement. Orthopedics was consulted and they agreed with I\T\D, which was done while in hospital. Subsequently, culture grew Staph aureus. After surgery, patient was getting wound care. While in hospital, he received vancomycin and Rocephin. On discharge, we changed to Keflex for another 15 days. The patient's learned how to do the dressing at home and they are comfortable doing that at home. His pain is under control. As long as Orthopedic is okay, then we will consider discharging him home today. This patient has diabetes that is why we started glipizide and metformin. Dietary instruction given. Diabetic diet educated. The patient is seen and examined at bedside today. All review of systems reviewed with him and negative. PHYSICAL EXAMINATION: VITAL SIGNS: Currently, temperature 97.6, pulse 77, respiratory rate 18, saturation 96%, blood pressure 113/83. Weight 223 pounds. GENERAL: The patient is currently alert, awake, no acute distress. HEAD: Normocephalic, atraumatic. LUNGS: Clear to auscultation without any rhonchi or rales. CARDIAC: S1, S2 regular without any murmur. ABDOMEN: Soft, benign. EXTREMITIES: No edema. NEUROLOGIC: Nonfocal examination. Right knee is covered with a dressing. All new medication prescriptions sent to his pharmacy. Patient is medically stable for discharge today. Total time spent on discharge day 31 minutes MTDD
== END 2017-03-31 12:43 | disposition home or self-care (01) | DRG 580 ==
LOC: ERS 19:15 → T4-B 23:01
PROVIDERS: ADMIT Family Medicine; ATTEND Family Medicine
PROC: 0J9N0ZZ Drainage of Right Lower Leg Subcutaneous Tissue and Fascia, Open Approach (ICD-10-PCS; principal; 2017-03-29)
DX: L03.115 Cellulitis of right lower limb (principal); E87.1 Hypo-osmolality and hyponatremia; E11.65 Type 2 diabetes mellitus with hyperglycemia; B95.61 Methicillin susceptible Staphylococcus aureus infection as the cause of diseases classified elsewhere; L02.415 Cutaneous abscess of right lower limb; M70.41 Prepatellar bursitis, right knee; E66.9 Obesity, unspecified; Z68.37 Body mass index [BMI] 37.0-37.9, adult; R03.0 Elevated blood-pressure reading, without diagnosis of hypertension
CPT/HCPCS: 36415; 36416; 80048; 80053; 80202; 82010; 82330; 82550; 82803; 82947; 83036; 83605; 83930; 85007; 85025; 85027; 85652; 86140; 87040; 87070; 87077; 87186; 87205; 96365; 96367; 96372; 96375; J0696; J1815; J1885; J2001; J2270; J2405; J3010; J3370; J7050

== ENCOUNTER 2017-04-07 14:11 | Emergency (ER) | payer OTHER, SELFPAY | END 2017-04-07 16:55 | disposition home or self-care (01) | LOC: ERS 14:11 | DX: Z48.817 Encounter for surgical aftercare following surgery on the skin and subcutaneous tissue (principal); E11.9 Type 2 diabetes mellitus without complications | CPT/HCPCS: 99282 ==

== ENCOUNTER 2018-11-12 18:50 | Emergency (ER) | payer OTHER, SELFPAY ==
[2018-11-12] MEDS ORDERED: traMADol HCl 50 MG TAB ONE ×2 (19:57→20:00)
[2018-11-12] MEDS ORDERED: Adacel (T-DAP) 0.5 ML SYRINGE ONE (20:07)
== END 2018-11-12 20:09 | disposition home or self-care (01) ==
LOC: ERS 18:50
DX: L02.212 Cutaneous abscess of back [any part, except buttock and flank] (principal); L03.312 Cellulitis of back [any part except buttock and flank]; E11.9 Type 2 diabetes mellitus without complications
CPT/HCPCS: 90471; 90715

== ENCOUNTER 2020-11-15 16:19 | Emergency (ER) | payer SELFPAY ==
[2020-11-15] MEDS ORDERED: Benzocaine 20% Spray 60 ML CAN ONE (17:01)
[2020-11-15] MEDS ORDERED: HYDROcodone/Acetaminophen 10/325 mg Tablet ONE (17:32)
[2020-11-15] MEDS ORDERED: Sulfameth/Trimethoprim DS 800-160mg TAB ONE (17:32)
== END 2020-11-15 17:44 | disposition home or self-care (01) ==
LOC: ERS 16:19
DX: J34.0 Abscess, furuncle and carbuncle of nose (principal); E11.9 Type 2 diabetes mellitus without complications
CPT/HCPCS: 10060

== ENCOUNTER 2021-03-24 17:31 | Emergency (ER) | payer SELFPAY ==
[2021-03-24] MEDS ORDERED: Fentanyl 100 MCG/2 ML VIAL ONE (17:37)
[2021-03-24] MEDS ORDERED: ceFAZolin 2 GM/DEX 5% 100 ML BAG ONE (17:37)
[2021-03-24] MEDS ORDERED: HYDROcodone/Acetaminophen 10/325 mg Tablet ONE (18:26)
== END 2021-03-24 18:40 | disposition home or self-care (01) ==
LOC: ERS 17:31
DX: S62.633A Displaced fracture of distal phalanx of left middle finger, initial encounter for closed fracture (principal); S62.635A Displaced fracture of distal phalanx of left ring finger, initial encounter for closed fracture; I10 Essential (primary) hypertension; E11.9 Type 2 diabetes mellitus without complications; W28.XXXA Contact with powered lawn mower, initial encounter
CPT/HCPCS: 96365; 96375; J3010